=== PATIENT | male | born 1955 | race African-American/Black ===

== ENCOUNTER 2016-03-10 08:14 | Inpatient (IN) | payer MEDICAID ==
[~2016-03-10] VITALS: Ht 162.6 cm; Wt 99.8 kg
[~2016-03-10 08:14] MED LIST: ACETAMINOPHEN-1 EAC1 ORAL; ALBUTEROL SULF8.5 GM INH; ATORVASTATIN CA20 MG ORAL; CLONIDINE0.1 MG GT; HYDRALAZIN20 MG/1 ML IJ; IBUPROFEN600 MG ORAL; LABETALOL H5 MG/1 M1 IV; LASIX20 M1 ORAL; NORCO 5-325 TA1 EACH ORAL; PREDNISONE20 MG ORAL; QVAR7.3 G2 IH; VENTOLIN HFA18 GM INH
[2016-03-10 08:55] VITALS: BP 161/106
[2016-03-10 09:02] LABS: BASOPHILS % (AUTO) 1.2 % (0.0-2.0); LYMPHOCYTES % (AUTO) 37.5 % (20.0-45.0); MEAN CORPUSCULAR HEMOGLOBIN 26.5 PG (27.0-31.0); MEAN CORPUSCULAR HGB CONC 30.9 G/DL (32.0-36.0); MEAN CORPUSCULAR VOLUME 86 FL (80-99); MEAN PLATELET VOLUME 7.6 FL (6.5-10.1); MONOCYTES % (AUTO) 8.8 % (1.0-10.0); NEUTROPHILS % (AUTO) 50.5 % (45.0-75.0); PLATELET COUNT 320 K/UL (150-450); RED BLOOD COUNT 4.88 M/UL (4.70-6.10); RED CELL DISTRIBUTION WIDTH 17.2 % (11.6-14.8); WHITE BLOOD COUNT 9.2 K/UL (4.8-10.8)
[2016-03-10 09:10] VITALS: BP 126/100
[2016-03-10 09:15] LABS: INR 0.9 (0.9-1.1); PROTHROMBIN TIME 9.4 SEC (9.30-11.50)
[2016-03-10 09:19] LABS: ALANINE AMINOTRANSFERASE 14 U/L (3-41); ALBUMIN/GLOBULIN RATIO 1.3 (1.0-2.7); ANION GAP 17 (5-15); ASPARTATE AMINO TRANSFERASE 17 U/L (5-40); CALCIUM 9.3 mg/dL (8.6-10.2); CARBON DIOXIDE 24 mEQ/L (20-30); CHLORIDE 99 mEQ/L (98-107); CREATININE 1.2 mg/dL (0.7-1.2); GLOMERULAR FILTRATION RATE > 60 mL/min (>60); HEMOLYSIS 25; POTASSIUM 4.3 mEQ/L (3.4-4.9); SODIUM 140 mEQ/L (135-145)
[2016-03-10 09:25] LABS: TROPONIN I < 0.30 ng/mL (<=0.30)
[2016-03-10 09:29] LABS: CKMB 5.1 ng/mL (< 6.7)
--- NOTE | 2016-03-10 09:41 | Emergency Room Report ---
History of Present Illness General Chief Complaint: Eye Problems Source: Patient, Medical Record Present Illness HPI Patient presents with several different complaints Initially complained of a syncopal episode while at home Reports syncope after a coughing and sneezing episode Presents today now with diplopia Appears to be localized to the right eye Denies any headache or visual changes Denies any chest pain He does have some shortness of breath intermittently As possibly sleep apnea Denies any blurring of his vision Denies any neck pain or photophobia Allergies: Coded Allergies: HINA INHIBITORS (Verified Allergy, Severe, 04/03/15) TIMOLOL (Unverified Allergy, Unknown, 06/01/15) Patient History Past Medical History: see triage record Pertinent Family History: none Reviewed Nursing Documentation: PMH: Agreed, PSxH: Agreed Nursing Documentation-PMH Past Medical History: No History, Except For Hx Cardiac Problems: Yes - CVA 2001. Hx Hypertension: Yes Hx Asthma: Yes Review of Systems All Other Systems: negative except mentioned in HPI Physical Exam Vital Signs Date Time Temp Pulse Resp B/P Pulse Ox O2 Delivery O2 Flow Rate FiO2 03/10/16 08:06 99.1 76 16 161/106 99 Room Air Sp02 EP Interpretation: reviewed, normal General Appearance: well appearing, no apparent distress Head: normocephalic, atraumatic Eyes: right eye other - Covering the left eye, patient has appropriate vision in the right side, covering the right side patient appears to have appropriate vision on the left side. Getting evidence of binocular diplopia, bilateral eye PERRL ENT: hearing grossly normal, normal pharynx, TMs + canals normal, uvula midline Neck: full range of motion, supple, no meningismus, no bony tend Respiratory: no respiratory distress, no retraction, no accessory muscle use, crackles - In both lower lobes Cardiovascular #1: normal peripheral pulses, regular rate, rhythm, no edema, no gallop, no JVD, no murmur Gastrointestinal: normal bowel sounds, non tender, soft, no mass, no organomegaly, non-distended, no guarding, no hernia, no pulsatile mass, no rebound Genitourinary: no CVA tenderness Musculoskeletal: normal inspection Neurologic: oriented x3, responsive, business management consultant III-XII nml as tested, motor strength/ tone normal, sensory intact Psychiatric: mood/affect normal Skin: normal color, no rash, warm/dry, palpation normal Lymphatic: normal inspection, no adenopathy Medical Decision Making Diagnostic Impression: Primary Impression: Syncope Additional Impression: Diplopia ER Course Patient is a fairly complex patient with multiple differential to consideration including but not limited to cardiac cardiopulmonary , intracranial and vascular emergencies Patient's CT head did not show any obvious acute disease Blood work is at baseline levels Patient's presentation complaints requires further neurological and further imaging studies inpatient Patient was further stabilized for inpatient care Labs Test 03/10/16 08:50 03/11/16 07:15 White Blood Count 9.2 K/UL (4.8-10.8) 7.3 K/UL (4.8-10.8) Red Blood Count 4.88 M/UL (4.70-6.10) 4.65 M/UL (4.70-6.10) Hemoglobin 13.0 G/DL (14.2-18.0) 12.4 G/DL (14.2-18.0) Hematocrit 41.9 % (42.0-52.0) 40.2 % (42.0-52.0) Mean Corpuscular Volume 86 FL (80-99) 86 FL (80-99) Mean Corpuscular Hemoglobin 26.5 PG (27.0-31.0) 26.7 PG (27.0-31.0) Mean Corpuscular Hemoglobin Concent 30.9 G/DL (32.0-36.0) 30.9 G/DL (32.0-36.0) Red Cell Distribution Width 17.2 % (11.6-14.8) 16.9 % (11.6-14.8) Platelet Count 320 K/UL (150-450) 309 K/UL (150-450) Mean Platelet Volume 7.6 FL (6.5-10.1) 8.1 FL (6.5-10.1) Neutrophils (%) (Auto) 50.5 % (45.0-75.0) 50.7 % (45.0-75.0) Lymphocytes (%) (Auto) 37.5 % (20.0-45.0) 37.4 % (20.0-45.0) Monocytes (%) (Auto) 8.8 % (1.0-10.0) 9.2 % (1.0-10.0) Eosinophils (%) (Auto) 2.0 % (0.0-3.0) 1.6 % (0.0-3.0) Basophils (%) (Auto) 1.2 % (0.0-2.0) 1.2 % (0.0-2.0) Prothrombin Time 9.4 SEC (9.30-11.50) 9.4 SEC (9.30-11.50) Prothromb Time International Ratio 0.9 (0.9-1.1) 0.9 (0.9-1.1) Activated Partial Thromboplast Time 25 SEC (23-33) 27 SEC (23-33) Sodium Level 140 mEQ/L (135-145) 139 mEQ/L (135-145) Potassium Level 4.3 mEQ/L (3.4-4.9) 4.6 mEQ/L (3.4-4.9) Chloride Level 99 mEQ/L (98-107) 99 mEQ/L (98-107) Carbon Dioxide Level 24 mEQ/L (20-30) 26 mEQ/L (20-30) Anion Gap 17 (5-15) 14 (5-15) Blood Urea Nitrogen 18 mg/dL (7-23) 14 mg/dL (7-23) Creatinine 1.2 mg/dL (0.7-1.2) 0.9 mg/dL (0.7-1.2) Estimat Glomerular Filtration Rate > 60 mL/min (>60) > 60 mL/min (>60) Glucose Level 73 mg/dL (74-106) 124 mg/dL (74-106) Calcium Level 9.3 mg/dL (8.6-10.2) 9.1 mg/dL (8.6-10.2) Total Bilirubin 0.3 mg/dL (0.0-1.2) 0.4 mg/dL (0.0-1.2) Aspartate Amino Transf (AST/SGOT) 17 U/L (5-40) 15 U/L (5-40) Alanine Aminotransferase (ALT/SGPT) 14 U/L (3-41) 13 U/L (3-41) Alkaline Phosphatase 94 U/L (40-129) 97 U/L (40-129) Total Creatine Kinase 305 U/L (38-174) Creatine Kinase MB 5.1 ng/mL (< 6.7) Creatine Kinase MB Relative Index 1.6 Troponin I < 0.30 ng/mL (<=0.30) Pro-B-Type Natriuretic Peptide 120 pg/mL (0-125) Total Protein 7.0 g/dL (6.6-8.7) 7.1 g/dL (6.6-8.7) Albumin 4.0 g/dL (3.5-5.2) 3.9 g/dL (3.5-5.2) Globulin 3.0 g/dL 3.2 g/dL Albumin/Globulin Ratio 1.3 (1.0-2.7) 1.2 (1.0-2.7) Triglycerides Level 76 mg/dL (< 150) Cholesterol Level 202 mg/dL (< 200) LDL Cholesterol 109 mg/dL (60-99) HDL Cholesterol 78 mg/dL (> 60) Cholesterol/HDL Ratio 2.6 (3.3-4.4) Thyroid Stimulating Hormone (TSH) 2.350 uIU/mL (0.300-4.500) EKG Diagnostic Results Rate: normal Rhythm: NSR ST Segments: other - Nonspecific ST and T-wave changes Rhythm Strip Diag. Results EP Interpretation: yes Rate: 74 Rhythm: NSR, no PVC's, no ectopy Chest X-Ray Diagnostic Results EP Interpretation: Yes Findings: no consolidation, no effusion, no pneumothorax Number of Views: 1 CT/MRI/US Diagnostic Results CT/MRI/US Diagnostic Results : Impression CT head no acute disease Last Vital Signs Date Time Temp Pulse Resp B/P Pulse Ox O2 Delivery O2 Flow Rate FiO2 03/10/16 09:10 99.1 79 21 126/100 100 Room Air Status: improved Disposition: ADMITTED INPATIENT Condition: Serious Referrals: [facility],REFERRING (PCP) ESPERANZA MANN D.O. Mar 10, 2016 09:41
[2016-03-10 10:17] VITALS: BP 117/69
--- NOTE | 2016-03-10 10:23 | Diagnostic Imaging Report ---
Indication: Headache Technique: Contiguous 5 mm thick transaxial imaging of the head obtained in a Siemens Sensation [address] scanner. Soft tissue and bone windows generated. Total Dose length Product (DLP): [address] Dose Index Volume (CTDIvol): 70.38 mGy Comparison: none Findings: Mild, nonspecific, white matter hypoattenuation is noted throughout the brain consistent with chronic small vessel disease. Patchy low-attenuation foci noted throughout the thalami and basal ganglia regions. There is no midline shift, edema, acute hemorrhage, mass effect, or abnormal extra-axial fluid collections. Bones and extra osseous soft tissues are unremarkable. Impression: No acute intracranial bleed, mass effect or edema. Nonspecific white matter hypoattenuation probably due to chronic small vessel disease. The CT scanner at [facility] is accredited by the [employer] and the scans are performed using protocols designed to limit radiation exposure to as low as reasonably achievable to attain images of sufficient resolution adequate for diagnostic evaluation.
--- NOTE | 2016-03-10 11:08 | Diagnostic Imaging Report ---
Indication: Chest Pain Comparison: 06/01/15 A single view chest radiograph was obtained. Findings: Cardiomediastinal appearance is within normal limits for age. Pulmonary vascularity is appropriate. The diaphragmatic contour is smooth and costophrenic angles are sharp. No pleural effusions are identified. The bones are unremarkable. Impression: No acute findings
[2016-03-10] MEDS ORDERED: Morphine Sulfate 2mg/ml Inj IVP PRN (13:15)
[2016-03-10] MEDS ORDERED: Promethazine/Codeine 5ml UD ORAL PRN (13:15)
[2016-03-10] MEDS ORDERED: LORazepam Inj 2mg/ml 1ml IV PRN (13:15)
[2016-03-10] MEDS ORDERED: Mylanta II UD 30ml ORAL PRN (13:15)
[2016-03-10] MEDS ORDERED: Miralax 17gm pkt ORAL PRN (13:15)
[2016-03-10] MEDS ORDERED: Norco 5mg/325mg tab ORAL PRN (13:15)
[2016-03-10] MEDS ORDERED: Nitroglycerin Subl 0.4mg tab (Bottle Of 25) SL PRN (13:15)
--- NOTE | 2016-03-10 13:17 | History and Physical ---
History of Present Illness General Date patient seen: Mar 10, 2016 Reason for Hospitalization: Eye Problems Present Illness HPI 60 year old male with HTN, COPD, morbid obesity, woke up this morning with double vision. Brought it to rule out CVA. Allergies: Coded Allergies: HINA INHIBITORS (Verified Allergy, Severe, 04/03/15) TIMOLOL (Unverified Allergy, Unknown, 06/01/15) Medication History Scheduled Albuterol Sulfate (Ventolin Hfa), 2 PUFFS INH EVERY 6 HOURS, (Reported) Atorvastatin Calcium* (Atorvastatin Calcium*), Unknown Dose ORAL BEDTIME, ( Reported) Clonidine HCl (Clonidine HCl), 0.3 MG GT BID, (Reported) Furosemide* (Lasix*), 20 MG ORAL DAILY Hydralazine Hcl (Hydralazine Hcl), 100 MG IJ TID, (Reported) Ibuprofen* (Motrin*), 600 MG ORAL THREE TIMES A DAY Labetalol Hcl* (Labetalol Hcl*), 300 MG IV BID, (Reported) Prednisone* (Prednisone*), 40 MG ORAL DAILY Scheduled PRN Acetaminophen With Codeine (T#3) (Tylenol #3 Tab*), 1 TAB ORAL Q8H PRN for For Pain Albuterol Sulfate* (Albuterol Sulfate Mdi*), 2 PUFF INH Q4H PRN for Shortness of Breath Hydrocodone Bit/Acetaminophen 5-325* ([place] 5-325*), 1 TAB ORAL Q12HR PRN for For Pain Miscellaneous Medications Beclomethasone Dipropionate (Qvar), 7.3 GM IH, (Reported) Patient History Healthcare decision maker Resuscitation status Full Code Advanced Directive on File Past Medical/Surgical History Past Medical/Surgical History: (1) Sleep apnea (2) COPD exacerbation (3) Hypertension (4) Back pain Review of Systems All Other Systems: negative except mentioned in HPI Physical Exam General Appearance: WD/WN Lines, tubes and drains: peripheral, central line HEENT: normocephalic, atraumatic Neck: non-tender, normal alignment Respiratory/Chest: chest wall non-tender, lungs clear Cardiovascular/Chest: normal peripheral pulses Abdomen: normal bowel sounds Last 24 Hour Vital Signs Date Time Temp Pulse Resp B/P Pulse Ox O2 Delivery O2 Flow Rate FiO2 03/10/16 10:17 97.1 68 19 117/69 100 Room Air 03/10/16 09:10 99.1 79 21 126/100 100 Room Air 03/10/16 08:55 99.1 89 16 161/106 99 Room Air 03/10/16 08:06 99.1 76 16 161/106 99 Room Air Laboratory Tests Test 03/10/16 08:50 White Blood Count 9.2 K/UL (4.8-10.8) Red Blood Count 4.88 M/UL (4.70-6.10) Hemoglobin 13.0 G/DL (14.2-18.0) L Hematocrit 41.9 % (42.0-52.0) L Mean Corpuscular Volume 86 FL (80-99) Mean Corpuscular Hemoglobin 26.5 PG (27.0-31.0) L Mean Corpuscular Hemoglobin Concent 30.9 G/DL (32.0-36.0) L Red Cell Distribution Width 17.2 % (11.6-14.8) H Platelet Count 320 K/UL (150-450) Mean Platelet Volume 7.6 FL (6.5-10.1) Neutrophils (%) (Auto) 50.5 % (45.0-75.0) Lymphocytes (%) (Auto) 37.5 % (20.0-45.0) Monocytes (%) (Auto) 8.8 % (1.0-10.0) Eosinophils (%) (Auto) 2.0 % (0.0-3.0) Basophils (%) (Auto) 1.2 % (0.0-2.0) Prothrombin Time 9.4 SEC (9.30-11.50) Prothromb Time International Ratio 0.9 (0.9-1.1) Activated Partial Thromboplast Time 25 SEC (23-33) Sodium Level 140 mEQ/L (135-145) Potassium Level 4.3 mEQ/L (3.4-4.9) Chloride Level 99 mEQ/L (98-107) Carbon Dioxide Level 24 mEQ/L (20-30) Anion Gap 17 (5-15) H Blood Urea Nitrogen 18 mg/dL (7-23) Creatinine 1.2 mg/dL (0.7-1.2) Estimat Glomerular Filtration Rate > 60 mL/min (>60) Glucose Level 73 mg/dL (74-106) L Calcium Level 9.3 mg/dL (8.6-10.2) Total Bilirubin 0.3 mg/dL (0.0-1.2) Aspartate Amino Transf (AST/SGOT) 17 U/L (5-40) Alanine Aminotransferase (ALT/SGPT) 14 U/L (3-41) Alkaline Phosphatase 94 U/L (40-129) Total Creatine Kinase 305 U/L (38-174) H Creatine Kinase MB 5.1 ng/mL (< 6.7) Creatine Kinase MB Relative Index 1.6 Troponin I < 0.30 ng/mL (<=0.30) Pro-B-Type Natriuretic Peptide 120 pg/mL (0-125) Total Protein 7.0 g/dL (6.6-8.7) Albumin 4.0 g/dL (3.5-5.2) Globulin 3.0 g/dL Albumin/Globulin Ratio 1.3 (1.0-2.7) Height (Feet): 5 Height (Inches): 4.00 Weight (Pounds): 220 Medications Current Medications Medications (Trade) Dose Ordered Sig/Red Route PRN Reason Start Time Stop Time Status Last Admin Dose Admin Acetaminophen (Tylenol) 650 mg Q4H PRN ORAL fever 03/10/16 13:15 04/09/16 13:14 UNV Acetaminophen/ Hydrocodone Bitart ([place] 5/325) 1 tab Q12HR PRN ORAL For Pain 03/10/16 13:15 03/17/16 13:14 UNV Al Hydroxide/Mg Hydroxide (Mylanta II) 30 ml Q6H PRN ORAL dyspepsia 03/10/16 13:15 04/09/16 13:14 UNV Albuterol/ Ipratropium (DuoNeb 0.5-3(2.5)mg/3ml) 3 ml EVERY 4 HOURS PRN HHN Shortness of Breath 03/10/16 13:15 03/15/16 13:14 UNV Clonidine HCl (Catapres) 0.1 mg Q4H PRN ORAL For High Blood Pressure 03/10/16 13:15 04/09/16 13:14 UNV Clonidine HCl (Catapres) 0.3 mg BID GT 03/10/16 18:00 04/09/16 17:59 UNV Dextrose (Dextrose 50%) STAT PRN IV Hypoglycemia 03/10/16 13:15 04/09/16 13:14 UNV Dextrose/Sodium Chloride (D5 0.45% NS) 1,000 ml @ 50 mls/hr Q20H IV 03/10/16 17:50 04/09/16 17:49 UNV Furosemide (Lasix) 20 mg DAILY ORAL 03/11/16 09:00 04/10/16 08:59 UNV Heparin Sodium (Porcine) (Heparin 5000 units/ml) 5,000 units EVERY 12 HOURS SUBQ 03/10/16 21:00 04/09/16 20:59 UNV Labetalol HCl 300 mg 300 mg BID IV 03/10/16 18:00 04/09/16 17:59 UNV Lorazepam (Ativan 2mg/ml 1ml) 0.5 mg Q4H PRN IV For Anxiety 03/10/16 13:15 03/17/16 13:14 UNV Morphine Sulfate (Morphine Sulfate) 1 mg EVERY 4 HOURS PRN IVP For Pain 7-10 03/10/16 13:15 03/17/16 13:14 UNV Nitroglycerin (Ntg) 0.4 mg Q5M X 3 DOSES PRN SL Prn Chest Pain 03/10/16 13:15 04/09/16 13:14 UNV Ondansetron HCl (Zofran) 4 mg Q6H PRN IVP Nausea & Vomiting 03/10/16 13:15 04/09/16 13:14 UNV Polyethylene Glycol (Miralax) 17 gm HSPRN PRN ORAL Constipation 03/10/16 13:15 04/09/16 13:14 UNV Promethazine HCl/ Codeine (Phenergan with Codeine) 5 ml Q4H PRN ORAL For Cough 03/10/16 13:15 04/09/16 13:14 UNV Temazepam (Restoril) 15 mg HSPRN PRN ORAL Insomnia 03/10/16 13:15 03/17/16 13:14 UNV Assessment/Plan Problem List: (1) Diplopia ICD Codes: H53.2 - Diplopia SNOMED: 02659390 (2) Cerebrovascular accident (CVA) ICD Codes: I63.9 - Cerebral infarction, unspecified SNOMED: 608563261 Qualifiers: Qualified Codes: I63.9 - Cerebral infarction, unspecified (3) Hypertension ICD Codes: I10 - Essential (primary) hypertension SNOMED: 71866452 (4) Sleep apnea ICD Codes: G47.30 - Sleep apnea, unspecified SNOMED: 66305663 Qualifiers: Qualified Codes: G47.33 - Obstructive sleep apnea (adult) (pediatric) (5) COPD exacerbation ICD Codes: J44.1 - Chronic obstructive pulmonary disease with (acute) exacerbation SNOMED: 288655549 Assessment/Plan neuro evaluation risk stratification monitor bp echo, carotid US FELIBERTO BARBER Mar 10, 2016 13:17
[2016-03-10 16:00] VITALS: BP 154/93
[2016-03-10] MEDS: D5 1/2NS 1,000 ML IV SCH (17:55)
[2016-03-10] MEDS ORDERED: Labetalol 5mg/ml 20ml vial IV SCH (18:00)
--- NOTE | 2016-03-10 18:35 | Neurology Progress Note ---
Objective Physical Exam Last Vital Signs Date Time Temp Pulse Resp B/P Pulse Ox O2 Delivery O2 Flow Rate FiO2 03/10/16 17:56 157/105 03/10/16 16:00 75 18 97 Room Air 03/10/16 11:35 97.1 Laboratory Tests Test 03/10/16 08:50 White Blood Count 9.2 K/UL (4.8-10.8) Red Blood Count 4.88 M/UL (4.70-6.10) Hemoglobin 13.0 G/DL (14.2-18.0) L Hematocrit 41.9 % (42.0-52.0) L Mean Corpuscular Volume 86 FL (80-99) Mean Corpuscular Hemoglobin 26.5 PG (27.0-31.0) L Mean Corpuscular Hemoglobin Concent 30.9 G/DL (32.0-36.0) L Red Cell Distribution Width 17.2 % (11.6-14.8) H Platelet Count 320 K/UL (150-450) Mean Platelet Volume 7.6 FL (6.5-10.1) Neutrophils (%) (Auto) 50.5 % (45.0-75.0) Lymphocytes (%) (Auto) 37.5 % (20.0-45.0) Monocytes (%) (Auto) 8.8 % (1.0-10.0) Eosinophils (%) (Auto) 2.0 % (0.0-3.0) Basophils (%) (Auto) 1.2 % (0.0-2.0) Prothrombin Time 9.4 SEC (9.30-11.50) Prothromb Time International Ratio 0.9 (0.9-1.1) Activated Partial Thromboplast Time 25 SEC (23-33) Sodium Level 140 mEQ/L (135-145) Potassium Level 4.3 mEQ/L (3.4-4.9) Chloride Level 99 mEQ/L (98-107) Carbon Dioxide Level 24 mEQ/L (20-30) Anion Gap 17 (5-15) H Blood Urea Nitrogen 18 mg/dL (7-23) Creatinine 1.2 mg/dL (0.7-1.2) Estimat Glomerular Filtration Rate > 60 mL/min (>60) Glucose Level 73 mg/dL (74-106) L Calcium Level 9.3 mg/dL (8.6-10.2) Total Bilirubin 0.3 mg/dL (0.0-1.2) Aspartate Amino Transf (AST/SGOT) 17 U/L (5-40) Alanine Aminotransferase (ALT/SGPT) 14 U/L (3-41) Alkaline Phosphatase 94 U/L (40-129) Total Creatine Kinase 305 U/L (38-174) H Creatine Kinase MB 5.1 ng/mL (< 6.7) Creatine Kinase MB Relative Index 1.6 Troponin I < 0.30 ng/mL (<=0.30) Pro-B-Type Natriuretic Peptide 120 pg/mL (0-125) Total Protein 7.0 g/dL (6.6-8.7) Albumin 4.0 g/dL (3.5-5.2) Globulin 3.0 g/dL Albumin/Globulin Ratio 1.3 (1.0-2.7) Impression/Recommendations Problems: (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 (2) Abnormal gait (3) Diplopia (4) Sleep apnea (5) COPD exacerbation (6) Hypertension Status: unchanged Recommendations #[id number] MRI BRAIN OPHALMOLOGY LISANDRO [id number] ELVIN KING Mar 10, 2016 18:35
[2016-03-10 20:00] VITALS: BP 131/81
[2016-03-10] MEDS: Aspirin EC 81mg tab ORAL SCH (20:05)
[2016-03-10] MEDS: Heparin 5000 units/ml inj SUBQ SCH (20:06)
[2016-03-10] MEDS: DuoNeb 0.5-3(2.5)mg/3ml neb HHN PRN (20:16)
--- NOTE | 2016-03-10 22:57 | Consultation ---
DATE OF CONSULTATION: 03/10/2016 NEUROLOGICAL CONSULTATION REQUESTING PHYSICIAN: Janice Reynolds M.D. History of Present Illness: The patient is a 60-year-old gentleman who is seen in neurological consultation to evaluate the new onset of diplopia. The patient informed me that he woke up this morning, feeling fairly well around 7 a.m., then later about 7:30 to 8 o'clock, he had some breakfast and went back to bed to get some nap. Caregiver came and told him what is wrong with his eye. He did not notice initially, but then as he went to the bathroom and looked at the mirror, he was able to see that his right eye deviates to the right side. He had things were doubled with horizontal separation. He denies any other associated symptoms. No headache. No dizziness. No unilateral weakness, numbness, or tingling. Paramedics were called to the scene, blood pressure was elevated and in the emergency room was 161/106 and temperature 99.1 degrees. The patient denies recent upper respiratory infection, but admit having chronic productive cough. Following admission CAT scan of the brain revealed moderate diffuse atrophy, small vessel disease with no evidence of acute abnormalities. His chest x-ray, there was no acute findings. Lab work with CBC with mild anemia. Normal coagulation panel. Chemistry panel with elevated CK of 305, blood sugar was 73, anion gap of 17, otherwise normal study including troponins. Following admission until present, there was no further progression of symptomatology. PAST MEDICAL HISTORY: History of hypertension, hyperlipidemia, obstructive sleep apnea, COPD, cardiomyopathy and borderline diabetes. MEDICATIONS: Treatment prior to admission included atorvastatin, albuterol, Tylenol for pain control, clonidine, furosemide, hydralazine, Rippey p.r.n., ibuprofen, labetalol and prednisone 40 mg daily. SOCIAL HISTORY: Lives alone. He has a caregiver, who visits him daily. He is a smoker one pack per day, but denies alcohol or drug abuse. HISTORY: Noncontributory. REVIEW OF SYMPTOMS: The patient denies headache or dizziness. No swallowing difficulties, but has diplopia on lateral gazes with horizontal separation of images. He noticed small right orbital fissure. No chest pain. No palpitations. Denies shortness of breath. Unstable gait for the last couple of years, reason unknown. He is using cane. PHYSICAL EXAMINATION: GENERAL: This is a well-developed, morbidly obese male who is able to ambulate, holding to the IV pole. VITAL SIGNS: His vital signs now stable. Blood pressure 157/105, blood temperature 97.1 degrees, and pulse oximetry 97%. HEENT: Head, normocephalic. No evidence of trauma. Eyes, ears, and throat are clear. There is slight small of right orbital fissure. NECK: Supple. No meningeal signs. MUSCULOSKELETAL: Unremarkable. There is no deformities. Peripheral pulses 1+ symmetric. MENTAL STATUS: Alert and oriented x3. Speech is fluent. No evidence of aphasia. No apraxia. Cognitive function normal. CRANIAL NERVE II: Pupils both responding to light and accommodation. Extraocular movement abnormal in the right eye with eyes drifting to the right side. Normal vertical gazes. Symptoms somewhat fluctuating, at times right eye movement full range. There is diplopia on lateral gazes. CRANIAL NERVE V: Normal corneal responses. CRANIAL NERVE VII: No gross asymmetry. CRANIAL NERVE VIII: Slight decrease in hearing. CRANIAL NERVES IX THROUGH XII: Tongue is in midline. Symmetric palate elevation. MOTOR EXAMINATION: Normal muscle tone. Strength 5/5 in all extremities. No pronation drift. Deep reflexes 1+ symmetric with downgoing toes on both sides. Sensory exam normal to pinprick and light touch. Gait is slow, wobbly and required assistance. IMPRESSION: 1. Acute onset of partial right third nerve palsy, rule out third nerve mononeuropathy, rule out the lacunar stroke. 2. Abnormal ataxic gait, rule out extensive ischemic cerebrovascular disease with multiple strokes, rule out polyneuropathy. 3. Hypertension. 4. Morbid obesity. 5. Nicotine dependent. 6. Chronic obstructive pulmonary disease. 7. Obstructive sleep apnea. RECOMMENDATIONS: 1. MRI of the brain and orbit without contrast. 2. Hydration. Maintain systolic blood pressure above 110 and below 160. 3. Check carotid duplex and 2D echocardiogram. 4. Add aspirin 81 mg daily. 5. Avoid opiates. 6. Ophthalmology assessment. Thank you for allowing me to see this interesting patient in neurological consultation. Niko Paz M.D. DR: ANANTH JOB#: [id number] CC:
[2016-03-11] VITALS (7 sets, daily range): BP systolic 105–161; BP diastolic 78–104
[2016-03-11 08:37] LABS: ALANINE AMINOTRANSFERASE 13 U/L (3-41); ALBUMIN/GLOBULIN RATIO 1.2 (1.0-2.7); ANION GAP 14 (5-15); ASPARTATE AMINO TRANSFERASE 15 U/L (5-40); CALCIUM 9.1 mg/dL (8.6-10.2); CARBON DIOXIDE 26 mEQ/L (20-30); CHLORIDE 99 mEQ/L (98-107); CHOLESTEROL 202 mg/dL (< 200); CHOLESTEROL/HDL RATIO 2.6 (3.3-4.4); CREATININE 0.9 mg/dL (0.7-1.2); GLOMERULAR FILTRATION RATE > 60 mL/min (>60); HEMOLYSIS 1; LDL CHOLESTEROL (CALC.) 109 mg/dL (60-99); POTASSIUM 4.6 mEQ/L (3.4-4.9); SODIUM 139 mEQ/L (135-145); TOTAL PROTEIN 7.1 g/dL (6.6-8.7)
[2016-03-11] MEDS: Aspirin EC 81mg tab ORAL SCH (08:40)
[2016-03-11 08:41] LABS: BASOPHILS % (AUTO) 1.2 % (0.0-2.0); EOSINOPHILS % (AUTO) 1.6 % (0.0-3.0); LYMPHOCYTES % (AUTO) 37.4 % (20.0-45.0); MEAN CORPUSCULAR HEMOGLOBIN 26.7 PG (27.0-31.0); MEAN CORPUSCULAR HGB CONC 30.9 G/DL (32.0-36.0); MEAN CORPUSCULAR VOLUME 86 FL (80-99); MEAN PLATELET VOLUME 8.1 FL (6.5-10.1); MONOCYTES % (AUTO) 9.2 % (1.0-10.0); NEUTROPHILS % (AUTO) 50.7 % (45.0-75.0); PLATELET COUNT 309 K/UL (150-450); RED BLOOD COUNT 4.65 M/UL (4.70-6.10); RED CELL DISTRIBUTION WIDTH 16.9 % (11.6-14.8); WHITE BLOOD COUNT 7.3 K/UL (4.8-10.8)
[2016-03-11] MEDS: Heparin 5000 units/ml inj SUBQ SCH ×2 (08:41→20:39)
[2016-03-11 08:58] LABS: INR 0.9 (0.9-1.1); PROTHROMBIN TIME 9.4 SEC (9.30-11.50)
[2016-03-11] MEDS: DuoNeb 0.5-3(2.5)mg/3ml neb HHN PRN ×2 (09:34→17:01)
--- NOTE | 2016-03-11 09:50 | Pulmonology Progress Note ---
Assessment/Plan Problems: (1) Diplopia (2) Cerebrovascular accident (CVA) (3) Hypertension (4) Sleep apnea (5) COPD exacerbation Assessment/Plan awaiting MRI brain neuro input appreciated swallow study noted med/surg dc home if ok with Neuro Subjective Interval Events: diplopia resolved Allergies: Coded Allergies: HINA INHIBITORS (Verified Allergy, Severe, 04/03/15) TIMOLOL (Unverified Allergy, Unknown, 06/01/15) Objective Last 24 Hour Vital Signs Date Time Temp Pulse Resp B/P Pulse Ox O2 Delivery O2 Flow Rate FiO2 03/11/16 09:37 78 20 98 Room Air 03/11/16 08:41 151/87 03/11/16 08:34 151/87 03/11/16 07:51 97.7 77 20 105/84 99 Room Air 03/11/16 06:50 67 17 Room Air 21 03/11/16 04:00 97.2 69 20 143/78 100 Room Air 03/11/16 03:47 63 03/11/16 00:00 97.4 72 16 140/84 99 Room Air 03/10/16 23:53 64 03/10/16 20:24 66 18 99 Room Air 03/10/16 20:16 66 18 97 Room Air 03/10/16 20:15 66 18 Room Air 03/10/16 20:00 77 03/10/16 20:00 96.8 74 18 131/81 98 Room Air 03/10/16 17:56 157/105 03/10/16 16:00 75 18 154/93 97 Room Air 03/10/16 16:00 73 03/10/16 11:39 84 03/10/16 11:35 97.1 68 19 117/69 100 Room Air 03/10/16 10:17 97.1 68 19 117/69 100 Room Air Intake and Output 03/10/16 03/11/16 19:00 07:00 Intake Total 50 ml 600 ml Balance 50 ml 600 ml Intake Oral 0 ml IV Total 50 ml 600 ml # Voids 2 General Appearance: WD/WN HEENT: normocephalic Respiratory/Chest: chest wall non-tender, lungs clear Cardiovascular: normal peripheral pulses, normal rate Abdomen: normal bowel sounds, no organomegaly Laboratory Tests 03/11/16 07:15: White Blood Count 7.3, Red Blood Count 4.65L, Hemoglobin 12.4L, Hematocrit 40.2L , Mean Corpuscular Volume 86, Mean Corpuscular Hemoglobin 26.7L, Mean Corpuscular Hemoglobin Concent 30.9L, Red Cell Distribution Width 16.9H, Platelet Count 309, Mean Platelet Volume 8.1, Neutrophils (%) (Auto) 50.7, Lymphocytes (%) (Auto) 37.4, Monocytes (%) (Auto) 9.2, Eosinophils (%) (Auto) 1.6, Basophils (%) (Auto) 1.2, Prothrombin Time 9.4, Prothromb Time International Ratio 0.9, Activated Partial Thromboplast Time 27, Sodium Level 139, Potassium Level 4.6, Chloride Level 99, Carbon Dioxide Level 26, Anion Gap 14, Blood Urea Nitrogen 14, Creatinine 0.9, Estimat Glomerular Filtration Rate > 60, Glucose Level 124H, Calcium Level 9.1, Total Bilirubin 0.4, Aspartate Amino Transf (AST/SGOT) 15, Alanine Aminotransferase (ALT/SGPT) 13, Alkaline Phosphatase 97, Total Protein 7.1, Albumin 3.9, Globulin 3.2, Albumin/Globulin Ratio 1.2, Triglycerides Level 76, Cholesterol Level 202H, LDL Cholesterol 109H , HDL Cholesterol 78H, Cholesterol/HDL Ratio 2.6L, Thyroid Stimulating Hormone ( TSH) 2.350 Current Medications Medications (Trade) Dose Ordered Sig/Red Route PRN Reason Start Time Stop Time Status Last Admin Dose Admin Acetaminophen (Tylenol) 650 mg Q4H PRN ORAL fever 03/10/16 13:15 04/09/16 13:14 Acetaminophen/ Hydrocodone Bitart 1 tab 1 tab Q12HR PRN ORAL For Pain 03/10/16 13:15 03/17/16 13:14 Al Hydroxide/Mg Hydroxide (Mylanta II) 30 ml Q6H PRN ORAL dyspepsia 03/10/16 13:15 04/09/16 13:14 Albuterol/ Ipratropium (DuoNeb 0.5-3(2.5)mg/3ml) 3 ml Q4H PRN HHN Shortness of Breath 03/10/16 13:15 03/15/16 13:14 03/11/16 09:34 Aspirin (Ecotrin) 81 mg DAILY ORAL 03/10/16 19:00 04/09/16 18:59 03/11/16 08:40 Clonidine HCl (Catapres) 0.1 mg Q4H PRN ORAL For High Blood Pressure 03/10/16 13:15 04/09/16 13:14 Clonidine HCl (Catapres) 0.3 mg BID GT 03/10/16 18:00 04/09/16 17:59 03/11/16 08:41 Dextrose (Dextrose 50%) STAT PRN IV Hypoglycemia 03/10/16 13:15 04/09/16 13:14 Dextrose/Sodium Chloride (D5 0.45% NS) 1,000 ml @ 50 mls/hr Q20H IV 03/10/16 17:50 04/09/16 17:49 03/10/16 17:55 Furosemide (Lasix) 20 mg DAILY ORAL 03/11/16 09:00 04/10/16 08:59 03/11/16 08:40 Heparin Sodium (Porcine) (Heparin 5000 units/ml) 5,000 units EVERY 12 HOURS SUBQ 03/10/16 21:00 04/09/16 20:59 03/11/16 08:41 Lorazepam (Ativan 2mg/ml 1ml) 0.5 mg Q4H PRN IV For Anxiety 03/10/16 13:15 03/17/16 13:14 Morphine Sulfate (Morphine Sulfate) 1 mg Q4H PRN IVP For Pain 7-10 03/10/16 13:15 03/17/16 13:14 Nitroglycerin (Ntg) 0.4 mg Q5M X 3 DOSES PRN SL Prn Chest Pain 03/10/16 13:15 04/09/16 13:14 Ondansetron HCl (Zofran) 4 mg Q6H PRN IVP Nausea & Vomiting 03/10/16 13:15 04/09/16 13:14 Polyethylene Glycol (Miralax) 17 gm HSPRN PRN ORAL Constipation 03/10/16 13:15 04/09/16 13:14 Promethazine HCl/ Codeine (Phenergan with Codeine) 5 ml Q4H PRN ORAL For Cough 03/10/16 13:15 04/09/16 13:14 Temazepam (Restoril) 15 mg HSPRN PRN ORAL Insomnia 03/10/16 13:15 03/17/16 13:14 FELIBERTO BARBER Mar 11, 2016 09:50
--- NOTE | 2016-03-11 13:19 | Neurology Progress Note ---
Interim History Interim History ROS Limited/Unobtainable: No Complaints: OD deviates to R intermittently Events: stable, no associate sx Objective Physical Exam Last Vital Signs Date Time Temp Pulse Resp B/P Pulse Ox O2 Delivery O2 Flow Rate FiO2 03/11/16 11:34 98.4 75 20 137/104 98 Room Air 03/11/16 06:50 21 Laboratory Tests Test 03/11/16 07:15 White Blood Count 7.3 K/UL (4.8-10.8) Red Blood Count 4.65 M/UL (4.70-6.10) L Hemoglobin 12.4 G/DL (14.2-18.0) L Hematocrit 40.2 % (42.0-52.0) L Mean Corpuscular Volume 86 FL (80-99) Mean Corpuscular Hemoglobin 26.7 PG (27.0-31.0) L Mean Corpuscular Hemoglobin Concent 30.9 G/DL (32.0-36.0) L Red Cell Distribution Width 16.9 % (11.6-14.8) H Platelet Count 309 K/UL (150-450) Mean Platelet Volume 8.1 FL (6.5-10.1) Neutrophils (%) (Auto) 50.7 % (45.0-75.0) Lymphocytes (%) (Auto) 37.4 % (20.0-45.0) Monocytes (%) (Auto) 9.2 % (1.0-10.0) Eosinophils (%) (Auto) 1.6 % (0.0-3.0) Basophils (%) (Auto) 1.2 % (0.0-2.0) Prothrombin Time 9.4 SEC (9.30-11.50) Prothromb Time International Ratio 0.9 (0.9-1.1) Activated Partial Thromboplast Time 27 SEC (23-33) Sodium Level 139 mEQ/L (135-145) Potassium Level 4.6 mEQ/L (3.4-4.9) Chloride Level 99 mEQ/L (98-107) Carbon Dioxide Level 26 mEQ/L (20-30) Anion Gap 14 (5-15) Blood Urea Nitrogen 14 mg/dL (7-23) Creatinine 0.9 mg/dL (0.7-1.2) Estimat Glomerular Filtration Rate > 60 mL/min (>60) Glucose Level 124 mg/dL (74-106) H Calcium Level 9.1 mg/dL (8.6-10.2) Total Bilirubin 0.4 mg/dL (0.0-1.2) Aspartate Amino Transf (AST/SGOT) 15 U/L (5-40) Alanine Aminotransferase (ALT/SGPT) 13 U/L (3-41) Alkaline Phosphatase 97 U/L (40-129) Total Protein 7.1 g/dL (6.6-8.7) Albumin 3.9 g/dL (3.5-5.2) Globulin 3.2 g/dL Albumin/Globulin Ratio 1.2 (1.0-2.7) Triglycerides Level 76 mg/dL (< 150) Cholesterol Level 202 mg/dL (< 200) H LDL Cholesterol 109 mg/dL (60-99) H HDL Cholesterol 78 mg/dL (> 60) H Cholesterol/HDL Ratio 2.6 (3.3-4.4) L Thyroid Stimulating Hormone (TSH) 2.350 uIU/mL (0.300-4.500) General: no acute distress, other - obese Head: normocophalic, atraumatic Neck: no rigidity Neurologic Exam Mental Status: awake, alert, oriented x4, normal cognition, good mathematical skills, normal recent memory, normal remote memory, preserved visuospatial function Speech: normal speech, no dysarthia Language: normal language, no aphasia Cranial Nerve II: fundus normal, visual [place], no papilledema Cranial Nerves III, IV, : PERRLA, EOMI, pupils, other - slightly smaller R orbit fissure Cranial Nerve V: normal facial sensations, temporales function normal, masseters function normal, pterygoids function normal Cranial Nerve VII: no facial asymmetry, normal facial expressions Cranial Nerve VIII: normal hearing, no nystagmus Cranial Nerve IX: normal palate elevation, gag response Cranial Nerve X: no voice hoarseness Cranial Nerve XI: SCM symmetric, trapezii function normal Cranial Nerve XII: tongue midline, no tongue atrophy/fasciculations Motor System: normal muscle tone, strength 5/5, no involuntary movement Sensory: normal pinprick, normal position sense Coordination: normal finger to nose bilaterally Deep Tendon Reflexes: 0 ankle (L), 0 ankle (R), 0 bicep (L), 0 bicep (R), 0 brachioradialis (L), 0 brachioradialis (R), 0 knee (L), 0 knee (R), 0 tricep (L) , 0 tricep (R) Reflexes: mute plantar (L), mute plantar (R) Gait: stable - wabbly, normal regular, heel + toe gait, other Impression/Recommendations Problems: (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 (2) Abnormal gait (3) Diplopia (4) Sleep apnea (5) COPD exacerbation (6) Hypertension Status: unchanged Recommendations #[id number] MRI BRAIN pend OPHALMOLOGY EVAL [id number] add labs ELVIN KING Mar 11, 2016 13:19
[2016-03-11] MEDS: D5 1/2NS 1,000 ML IV SCH ×2 (13:53→20:38)
--- NOTE | 2016-03-11 14:56 | Consultation ---
Consult Note Assessment/Plan Cardiology for Dr. Fish Full consult dictated #[id number] FRANCIS SCHREIBER Mar 11, 2016 14:56
[2016-03-11] MEDS ORDERED: Nitroglycerin Subl 0.4mg tab (Bottle Of 25) SL PRN (18:45)
[2016-03-11] MEDS ORDERED: Mylanta II UD 30ml ORAL PRN (19:15)
[2016-03-11] MEDS ORDERED: Norco 5mg/325mg tab ORAL PRN (21:00)
[2016-03-11] MEDS ORDERED: Promethazine/Codeine 5ml UD ORAL PRN (21:15)
[2016-03-11] MEDS ORDERED: Morphine Sulfate 2mg/ml Inj IVP PRN (21:15)
[2016-03-11] MEDS ORDERED: LORazepam Inj 2mg/ml 1ml IV PRN (21:15)
[2016-03-12] VITALS: BP 143/101
[2016-03-12 04:00] VITALS: BP 154/111
--- NOTE | 2016-03-12 07:18 | Consultation ---
DATE OF CONSULTATION: CARDIOLOGY CONSULTATION: This is being done as coverage for Dr. Fish. This is a Cardiology consult. REQUESTING PHYSICIAN: Janice Reynolds M.D. REASON FOR CONSULT: Hypertension and possible CVA. HISTORY OF PRESENT ILLNESS: The patient is a 60-year-old, man with a history of obesity and hypertension, who developed diplopia of the right eye shortly after awakening yesterday. He reports that his symptoms have now resolved. Diplopia of the right eye and also noted deviation of the right eye to the right side yesterday. Symptoms occurred while at rest shortly after awakening yesterday. He presented to the emergency room where he was noted to be severely hypertensive 161/106. Head CT was performed, which did not reveal any acute changes. There was moderate diffuse atrophy and small vessel disease. He was evaluated by Neurology and felt to have a possible third nerve mononeuropathy or lacunar CVA. He was admitted for further treatment. He states that his diplopia has now resolved. He has no complaint of shortness of breath, palpitations, lightheadedness, or dizziness. MEDICATIONS: The patient is unsure of his medications at home. Currently, he is on Lasix 20 mg daily, subcutaneous heparin 5000 units q.12 h., aspirin 81 mg daily, clonidine 0.3 mg twice a day, Tylenol as needed, DuoNeb as needed, and morphine as needed. ALLERGIES: HINA inhibitors cause swelling and timolol (uncertain reaction). PAST MEDICAL HISTORY: As noted above. The patient has no previous history of CVA, myocardial infarction, or congestive heart failure. He has hypertension, hyperlipidemia, sleep apnea, and chronic obstructive pulmonary disease. SOCIAL HISTORY: The patient smokes one pack per day and drinks 1/2 pint of vodka per day. He does not use any drugs. PHYSICAL EXAMINATION: VITAL SIGNS: Blood pressure is 137/104, pulse 75 regular, respirations 20, and afebrile. GENERAL: Alert, obese male, in no acute distress. HEENT: Normocephalic and atraumatic. Pupils are equal, round, and reactive to light. Sclerae anicteric. Oral mucosa are moist. NECK: Supple. There is no jugular venous distention. No carotid bruits. LUNGS: Occasional rhonchi bilaterally. HEART: Distant heart sounds. Regular S1, S2 with no murmurs, rubs, S3, or S4. ABDOMEN: Obese. Soft and nontender. No palpable mass. EXTREMITIES: There is 2+ pitting edema of the right greater than left foot and ankle. Distal pulses are intact bilaterally. NEUROLOGIC: Alert and oriented x3. No gross focal motor deficits. Extraocular movements are intact. Pupils are equal, round, and reactive to light and no diplopia. Alert and oriented x3. Extraocular movements intact. There is no diplopia. Currently peripheral vision is intact. Motor, no focal motor deficits. SKIN: No rashes or lesions. LABORATORY AND DIAGNOSTIC DATA: Hemoglobin 12.4, white blood count 7300, and platelets 309,000. Sodium 139, potassium 4.6, BUN 14, and creatinine 0.9. Cholesterol 202, LDL 109, HDL 78, and TSH 2.3. Chest x-ray, we will review. Chest x-ray shows normal heart size. Normal pulmonary vasculature. No infiltrates or effusions. EKG is pending. ASSESSMENT AND RECOMMENDATIONS: The patient is a 60-year-old man with history of hypertension, hyperlipidemia, obesity, and chronic obstructive pulmonary disease who presents with transient diplopia of the right eye. He has been evaluated by Neurology and is felt to have a possible third nerve palsy versus mononeuropathy versus lacunar stroke. This is being evaluated further with an MRI of the brain. He is also scheduled for carotid duplex and echo. On presentation, he was severely hypertensive and this has improved with medication. I would agree with the Neurology recommendation to maintain the blood pressure above 110 and the low 160 in the acute as well. So, this has improved with medical treatment. I would agree with the Neurology recommendation to maintain loose blood pressure control keeping systolic blood pressure above 110 . Possibly periinfarct. He will be maintained on telemetry to rule out atrial fibrillation, which may have potentially caused an embolic CVA. I will review his echo and EKG results, as they become available. His blood pressure will be followed and he will receive labetalol if needed again with loose blood pressure control, as he may be cristiano-infarct. Zakia Boyd M.D. DR: LUIS E JOB#: [id number] CC:
[2016-03-12 07:50] VITALS: BP 147/97
[2016-03-12] MEDS: DuoNeb 0.5-3(2.5)mg/3ml neb HHN PRN ×2 (08:45→13:59)
[2016-03-12] MEDS: Heparin 5000 units/ml inj SUBQ SCH ×2 (09:19→21:31)
[2016-03-12] MEDS: Aspirin EC 81mg tab ORAL SCH (09:22)
[2016-03-12 12:00] VITALS: BP_SYST 123; BP_SYST 164; BP_DIAS 117; BP_DIAS 80
--- NOTE | 2016-03-12 13:12 | Pulmonology Progress Note ---
Assessment/Plan Problems: (1) Diplopia (2) Cerebrovascular accident (CVA) (3) Hypertension (4) Sleep apnea (5) COPD exacerbation Assessment/Plan awaiting MRI brain neuro input appreciated swallow study noted med/surg dc home if ok with Neuro Subjective ROS Limited/Unobtainable: Yes HEENT: Repors: visual change Neurologic: Reports: numbness, weakness Allergies: Coded Allergies: HINA INHIBITORS (Verified Allergy, Severe, 04/03/15) TIMOLOL (Unverified Allergy, Unknown, 06/01/15) Objective Last 24 Hour Vital Signs Date Time Temp Pulse Resp B/P Pulse Ox O2 Delivery O2 Flow Rate FiO2 03/12/16 12:00 97.5 72 20 164/117 98 Room Air 03/12/16 09:18 147/97 03/12/16 08:43 80 26 98 Room Air 03/12/16 07:50 97.2 79 20 147/97 95 Room Air 03/12/16 07:00 78 17 Room Air 21 03/12/16 04:20 81 18 100 Room Air 03/12/16 04:17 75 20 98 Room Air 03/12/16 04:00 97.7 79 22 154/111 98 Room Air 03/12/16 00:00 96.3 75 22 143/101 94 Room Air 03/11/16 19:10 81 17 Room Air 21 03/11/16 19:00 98.9 81 20 154/90 Room Air 03/11/16 18:16 161/100 03/11/16 17:00 85 20 100 Room Air 03/11/16 16:00 99.7 82 20 161/100 95 Simple Mask 2.0 Intake and Output 03/11/16 03/12/16 19:00 07:00 Intake Total 1310 ml 1180 ml Balance 1310 ml 1180 ml Intake Oral 660 ml 580 ml IV Total 650 ml 600 ml # Voids 3 4 General Appearance: no acute distress HEENT: normocephalic, atraumatic, PERRL Respiratory/Chest: chest wall non-tender, decreased breath sounds, accessory muscle use Cardiovascular: normal peripheral pulses, normal rate, regular rhythm, no JVD Abdomen: normal bowel sounds, soft, non tender, no organomegaly Genitourinary: normal external genitalia Extremities: no cyanosis Neurologic/Psychiatric: responsive, abnormal CN, motor weakness, sensory deficit, aphasia, depressed affect Current Medications Medications (Trade) Dose Ordered Sig/Red Route PRN Reason Start Time Stop Time Status Last Admin Dose Admin Acetaminophen (Tylenol) 650 mg Q4H PRN ORAL fever 03/11/16 21:15 04/10/16 21:14 Acetaminophen/ Hydrocodone Bitart ([place] 5/325) 1 tab Q12HR PRN ORAL Moderate Pain (Pain Scale 4-6) 03/11/16 21:00 03/18/16 20:59 Al Hydroxide/Mg Hydroxide (Mylanta II) 30 ml Q6H PRN ORAL dyspepsia 03/11/16 19:15 04/10/16 19:14 Albuterol/ Ipratropium (DuoNeb 0.5-3(2.5)mg/3ml) 3 ml Q4H PRN HHN Shortness of Breath 03/11/16 21:15 03/16/16 21:14 03/12/16 08:45 Aspirin (Ecotrin) 81 mg DAILY ORAL 03/12/16 09:00 04/11/16 08:59 03/12/16 09:22 Clonidine HCl (Catapres) 0.1 mg Q4H PRN ORAL For High Blood Pressure 03/11/16 21:15 04/10/16 21:14 Clonidine HCl (Catapres) 0.3 mg BID GT 03/12/16 09:00 04/11/16 08:59 03/12/16 09:18 Dextrose (Dextrose 50%) STAT PRN IV Hypoglycemia 03/12/16 13:15 04/11/16 13:14 Dextrose/Sodium Chloride (D5 0.45% NS) 1,000 ml @ 50 mls/hr Q20H IV 03/11/16 19:30 04/10/16 19:29 03/11/16 20:38 Furosemide (Lasix) 20 mg DAILY ORAL 03/12/16 09:00 04/11/16 08:59 03/12/16 09:18 Heparin Sodium (Porcine) (Heparin 5000 units/ml) 5,000 units EVERY 12 HOURS SUBQ 03/11/16 21:00 04/10/16 20:59 03/12/16 09:19 Lorazepam (Ativan 2mg/ml 1ml) 0.5 mg Q4H PRN IV For Anxiety 03/11/16 21:15 03/18/16 21:14 Morphine Sulfate (Morphine Sulfate) 1 mg Q4H PRN IVP For Pain 7-10 03/11/16 21:15 03/18/16 21:14 Nitroglycerin (Ntg) 0.4 mg Q5M X 3 DOSES PRN SL Prn Chest Pain 03/11/16 18:45 04/10/16 18:44 Ondansetron HCl (Zofran) 4 mg Q6H PRN IVP Nausea & Vomiting 03/11/16 19:15 04/10/16 19:14 Polyethylene Glycol (Miralax) 17 gm HSPRN PRN ORAL Constipation 03/12/16 13:15 04/11/16 13:14 Promethazine HCl/ Codeine (Phenergan with Codeine) 5 ml Q4H PRN ORAL For Cough 03/11/16 21:15 04/10/16 21:14 Temazepam (Restoril) 15 mg HSPRN PRN ORAL Insomnia 03/12/16 13:15 03/19/16 13:14 FELIBERTO BARBER Mar 12, 2016 13:12
[2016-03-12] MEDS ORDERED: Miralax 17gm pkt ORAL PRN (13:15)
[2016-03-12 16:00] VITALS: BP 148/88
[2016-03-12] MEDS: D5 1/2NS 1,000 ML IV SCH (16:51)
--- NOTE | 2016-03-12 19:03 | Pulmonology Progress Note ---
Assessment/Plan Problems: (1) Diplopia (2) Cerebrovascular accident (CVA) (3) Hypertension (4) Sleep apnea (5) COPD exacerbation Assessment/Plan awaiting MRI brain neuro input appreciated swallow study noted med/surg dc home if ok with Neuro Subjective ROS Limited/Unobtainable: No HEENT: Repors: visual change Neurologic: Reports: confusion, headache, numbness, weakness Allergies: Coded Allergies: HINA INHIBITORS (Verified Allergy, Severe, 04/03/15) TIMOLOL (Unverified Allergy, Unknown, 06/01/15) Objective Last 24 Hour Vital Signs Date Time Temp Pulse Resp B/P Pulse Ox O2 Delivery O2 Flow Rate FiO2 03/12/16 16:00 97.9 67 18 148/88 97 Room Air 03/12/16 14:02 84 18 100 Room Air 03/12/16 13:54 82 22 98 Room Air 03/12/16 12:00 97.5 72 20 164/117 98 Room Air 03/12/16 09:18 147/97 03/12/16 08:43 80 26 98 Room Air 03/12/16 07:50 97.2 79 20 147/97 95 Room Air 03/12/16 07:00 78 17 Room Air 21 03/12/16 04:20 81 18 100 Room Air 03/12/16 04:17 75 20 98 Room Air 03/12/16 04:00 97.7 79 22 154/111 98 Room Air 03/12/16 00:00 96.3 75 22 143/101 94 Room Air 03/11/16 19:10 81 17 Room Air 21 Intake and Output 03/11/16 03/12/16 19:00 07:00 Intake Total 1310 ml 1180 ml Balance 1310 ml 1180 ml Intake Oral 660 ml 580 ml IV Total 650 ml 600 ml # Voids 3 4 General Appearance: no acute distress HEENT: normocephalic, atraumatic, PERRL Respiratory/Chest: chest wall non-tender, decreased breath sounds, accessory muscle use Cardiovascular: normal peripheral pulses, normal rate, regular rhythm Abdomen: normal bowel sounds, soft, non tender, no organomegaly Skin: no rash, no lesions Neurologic/Psychiatric: responsive, abnormal CN, motor weakness, sensory deficit, disoriented, aphasia Current Medications Medications (Trade) Dose Ordered Sig/Red Route PRN Reason Start Time Stop Time Status Last Admin Dose Admin Acetaminophen (Tylenol) 650 mg Q4H PRN ORAL fever 03/11/16 21:15 04/10/16 21:14 Acetaminophen/ Hydrocodone Bitart ([place] 5/325) 1 tab Q12HR PRN ORAL Moderate Pain (Pain Scale 4-6) 03/11/16 21:00 03/18/16 20:59 Al Hydroxide/Mg Hydroxide (Mylanta II) 30 ml Q6H PRN ORAL dyspepsia 03/11/16 19:15 04/10/16 19:14 Albuterol/ Ipratropium (DuoNeb 0.5-3(2.5)mg/3ml) 3 ml Q4H PRN HHN Shortness of Breath 03/11/16 21:15 03/16/16 21:14 03/12/16 13:59 Aspirin (Ecotrin) 81 mg DAILY ORAL 03/12/16 09:00 04/11/16 08:59 03/12/16 09:22 Clonidine HCl (Catapres) 0.1 mg Q4H PRN ORAL For High Blood Pressure 03/11/16 21:15 04/10/16 21:14 Clonidine HCl (Catapres) 0.3 mg BID GT 03/12/16 09:00 04/11/16 08:59 03/12/16 09:18 Dextrose (Dextrose 50%) STAT PRN IV Hypoglycemia 03/12/16 13:15 04/11/16 13:14 Dextrose/Sodium Chloride (D5 0.45% NS) 1,000 ml @ 50 mls/hr Q20H IV 03/11/16 19:30 04/10/16 19:29 03/12/16 16:51 Furosemide (Lasix) 20 mg DAILY ORAL 03/12/16 09:00 04/11/16 08:59 03/12/16 09:18 Heparin Sodium (Porcine) (Heparin 5000 units/ml) 5,000 units EVERY 12 HOURS SUBQ 03/11/16 21:00 04/10/16 20:59 03/12/16 09:19 Lorazepam (Ativan 2mg/ml 1ml) 0.5 mg Q4H PRN IV For Anxiety 03/11/16 21:15 03/18/16 21:14 Morphine Sulfate (Morphine Sulfate) 1 mg Q4H PRN IVP For Pain 7-10 03/11/16 21:15 03/18/16 21:14 Nitroglycerin (Ntg) 0.4 mg Q5M X 3 DOSES PRN SL Prn Chest Pain 03/11/16 18:45 04/10/16 18:44 Ondansetron HCl (Zofran) 4 mg Q6H PRN IVP Nausea & Vomiting 03/11/16 19:15 04/10/16 19:14 Polyethylene Glycol (Miralax) 17 gm HSPRN PRN ORAL Constipation 03/12/16 13:15 04/11/16 13:14 Promethazine HCl/ Codeine (Phenergan with Codeine) 5 ml Q4H PRN ORAL For Cough 03/11/16 21:15 04/10/16 21:14 Temazepam (Restoril) 15 mg HSPRN PRN ORAL Insomnia 03/12/16 13:15 03/19/16 13:14 FELIBERTO BARBER Mar 12, 2016 19:03
--- NOTE | 2016-03-12 19:49 | Cardiology Report ---
APPROVED REPORT EKG Measurement Heart [id number] Normal sinus rhythm Nonspecific T wave abnormality Prolonged QT Abnormal ECG
[2016-03-12 20:00] VITALS: BP 149/88
[2016-03-13] VITALS: BP 140/97
[2016-03-13 04:00] VITALS: BP 145/85
[2016-03-13 08:51] VITALS: BP 166/106
--- NOTE | 2016-03-13 09:18 | Cardiology Report ---
APPROVED REPORT EXAM: Two-dimensional and M-mode echocardiogram with Doppler and color Doppler. INDICATION Left Ventricular Function M-Mode DIMENSIONS IVSd2.2 (0.7-1.1cm)Left Atrium (MM)3.7 (1.6-4.0cm) LVDd4.1 (3.5-5.6cm)Aortic Root3.2 (2.0-3.7cm) PWd1.8 (0.7-1.1cm)Aortic Cusp Exc.1.9 (1.5-2.0cm) LVDs3.1 (2.5-4.0cm) PWs2.0 cm Normal left ventricular chamber size, systolic function and wall motion. Left ventricular ejection fraction estimated to be 55 %. Mild left ventricular hypertrophy. All other cardiac chamber sizes are within normal limits. Mild focal aortic valve sclerosis with adequate cusp excursion. Mildly thickened mitral valve leaflets with normal excursion. Mild mitral annulus and aortic root calcification. Pulmonic valve not well visualized. Normal tricuspid valve structure. IVC dilated at 2.1cm with physiologic collapse. A color flow and spectral Doppler study was performed and revealed: No aortic regurgitation. Mild mitral regurgitation. Mitral inflow indicate normal left ventricular diastolic function. Trace tricuspid regurgitation. Tricuspid systolic velocities suggests peak right ventricular systolic pressure of 22 mmHg. Pulmonic regurgitation present.
[2016-03-13] MEDS: Aspirin EC 81mg tab ORAL SCH (10:42)
[2016-03-13] MEDS: Heparin 5000 units/ml inj SUBQ SCH (10:44)
[2016-03-13] MEDS: DuoNeb 0.5-3(2.5)mg/3ml neb HHN PRN (11:33)
--- NOTE | 2016-03-13 11:37 | Diagnostic Imaging Report ---
Indications: Diplopia Technique: Sagittal and axial T1 weighted fast spin-echo, axial T2-weighted fat saturated fast spin echo, T2-weighted FLAIR, T2*-weighted gradient echo, and diffusion sequences of the brain were performed prior to IV gadolinium administration. Axial and coronal T1 weighted fast spin-echo was performed following IV gadolinium administration. Findings: Comparison: Noncontrast CT head 03/10/16 Extensive, partially confluent T2 signal hyperintensity is present around the bilateral cerebral periventricular, deep, and subcortical white matter. Multiple small circumscribed foci of signal change/parenchymal loss are superimposed within the bilateral thalami, basal ganglia, bruno are, centrum semiovale. Ventricles, cisterns, sulci are diffusely prominent. No evidence of mass or hemorrhage, other signal abnormality, mass effect, midline shift, hydrocephalus, or increased intracranial pressure. No restricted diffusion. No abnormal enhancement. Central vascular flow voids preserved. IMPRESSION: No evidence of acute intracranial pathology, unchanged Bilateral cerebral periventricular , deep, and subcorticalwhite matter signal hyperintensity, nonspecific, likely chronic microvascular ischemic in nature Multiple bilateral cerebral lacunar infarcts Atrophy
--- NOTE | 2016-03-13 11:49 | Diagnostic Imaging Report ---
Indications: Diplopia Technique: Axial T1-weighted fast spin-echo and T1-weighted fat-saturated fast spin-echo, coronal and axial T2-weighted fat-saturated fast spin-echo sequences of the orbits performed prior to IV gadolinium administration. Coronal and axial T1-weighted fat-saturated fast spin-echo sequences performed following IV gadolinium administration. Findings: Comparison: None Bilateral globes, periorbital preseptal soft tissues, retrobulbar or intraconal and extraconal soft tissues, extraocular muscles, lacrimal glands, optic nerves and sheaths, optic chiasm, suprasellar cistern, and post chiasmal optic radiations are unremarkable in appearance. No mass, fluid collection, other signal change or abnormal enhancement demonstrated. Mild mucoperiosteal thickening is present in the visualized portions of bilateral ethmoid sinuses. Impression: Negative MRI of the orbits
[2016-03-13] MEDS: D5 1/2NS 1,000 ML IV SCH (12:15)
[2016-03-13 12:35] VITALS: BP 161/98
--- NOTE | 2016-03-13 15:04 | Pulmonology Progress Note ---
Assessment/Plan Problems: (1) Diplopia (2) Cerebrovascular accident (CVA) (3) Hypertension (4) Sleep apnea (5) COPD exacerbation Assessment/Plan awaiting MRI brain neuro input appreciated swallow study noted med/surg dc home if ok with Neuro Subjective ROS Limited/Unobtainable: Yes Neurologic: Reports: confusion, numbness, weakness Allergies: Coded Allergies: HINA INHIBITORS (Verified Allergy, Severe, 04/03/15) TIMOLOL (Unverified Allergy, Unknown, 06/01/15) Objective Last 24 Hour Vital Signs Date Time Temp Pulse Resp B/P Pulse Ox O2 Delivery O2 Flow Rate FiO2 03/13/16 12:35 97.3 67 20 161/98 100 Room Air 03/13/16 10:43 156/101 03/13/16 08:51 97.5 70 20 166/106 98 Room Air 03/13/16 04:00 97.0 72 22 145/85 99 Room Air 03/13/16 00:00 97.7 74 22 140/97 100 Room Air 03/12/16 20:00 97.7 68 20 149/88 99 Room Air 03/12/16 19:30 84 16 Room Air 21 03/12/16 19:03 148/88 03/12/16 16:00 97.9 67 18 148/88 97 Room Air Intake and Output 03/12/16 03/13/16 19:00 07:00 Intake Total 500 ml 860 ml Output Total 1000 ml 950 ml Balance -500 ml -90 ml Intake Oral 250 ml 260 ml IV Total 250 ml 600 ml Output Urine Total 1000 ml 950 ml General Appearance: no acute distress HEENT: normocephalic, atraumatic, PERRL Respiratory/Chest: chest wall non-tender, normal breath sounds, no respiratory distress, no accessory muscle use, decreased breath sounds Cardiovascular: normal peripheral pulses, normal rate, regular rhythm, no JVD Abdomen: normal bowel sounds, soft, non tender, no organomegaly Extremities: no cyanosis Skin: no rash, no lesions Neurologic/Psychiatric: abnormal CN, motor weakness, sensory deficit, disoriented, depressed affect Current Medications Medications (Trade) Dose Ordered Sig/Red Route PRN Reason Start Time Stop Time Status Last Admin Dose Admin Acetaminophen (Tylenol) 650 mg Q4H PRN ORAL fever 03/11/16 21:15 04/10/16 21:14 Acetaminophen/ Hydrocodone Bitart ([place] 5/325) 1 tab Q12HR PRN ORAL Moderate Pain (Pain Scale 4-6) 03/11/16 21:00 03/18/16 20:59 03/12/16 21:30 Al Hydroxide/Mg Hydroxide (Mylanta II) 30 ml Q6H PRN ORAL dyspepsia 03/11/16 19:15 04/10/16 19:14 Albuterol/ Ipratropium (DuoNeb 0.5-3(2.5)mg/3ml) 3 ml Q4H PRN HHN Shortness of Breath 03/11/16 21:15 03/16/16 21:14 03/13/16 11:33 Aspirin (Ecotrin) 81 mg DAILY ORAL 03/12/16 09:00 04/11/16 08:59 03/13/16 10:42 Clonidine HCl (Catapres) 0.1 mg Q4H PRN ORAL For High Blood Pressure 03/11/16 21:15 04/10/16 21:14 Clonidine HCl (Catapres) 0.3 mg BID GT 03/12/16 09:00 04/11/16 08:59 03/13/16 10:43 Dextrose (Dextrose 50%) STAT PRN IV Hypoglycemia 03/12/16 13:15 04/11/16 13:14 Dextrose/Sodium Chloride (D5 0.45% NS) 1,000 ml @ 50 mls/hr Q20H IV 03/11/16 19:30 04/10/16 19:29 03/13/16 12:15 Furosemide (Lasix) 20 mg DAILY ORAL 03/12/16 09:00 04/11/16 08:59 03/13/16 10:42 Heparin Sodium (Porcine) (Heparin 5000 units/ml) 5,000 units EVERY 12 HOURS SUBQ 03/11/16 21:00 04/10/16 20:59 03/13/16 10:44 Lorazepam (Ativan 2mg/ml 1ml) 0.5 mg Q4H PRN IV For Anxiety 03/11/16 21:15 03/18/16 21:14 Morphine Sulfate (Morphine Sulfate) 1 mg Q4H PRN IVP For Pain 7-10 03/11/16 21:15 03/18/16 21:14 Nitroglycerin (Ntg) 0.4 mg Q5M X 3 DOSES PRN SL Prn Chest Pain 03/11/16 18:45 04/10/16 18:44 Ondansetron HCl (Zofran) 4 mg Q6H PRN IVP Nausea & Vomiting 03/11/16 19:15 04/10/16 19:14 Polyethylene Glycol (Miralax) 17 gm HSPRN PRN ORAL Constipation 03/12/16 13:15 04/11/16 13:14 Promethazine HCl/ Codeine (Phenergan with Codeine) 5 ml Q4H PRN ORAL For Cough 03/11/16 21:15 04/10/16 21:14 03/12/16 21:28 Temazepam (Restoril) 15 mg HSPRN PRN ORAL Insomnia 03/12/16 13:15 03/19/16 13:14 03/13/16 00:25 FELIBERTO BARBER Mar 13, 2016 15:04
[2016-03-13] MEDS ORDERED: D5 1/2NS 1000ml IV ONE ×2 (16:29)
--- NOTE | 2016-03-14 12:25 | Discharge Summary ---
Discharge Summary Hospital Course Date of Admission Mar 10, 2016 at 09:25 Date of Discharge Mar 13, 2016 at 16:30 Admitting Diagnosis SYNCOPE,DIPLOPIA HPI Milagro Kern is a 60 year old male who was admitted on Mar 10, 2016 at 09:25 for Syncope,Diplopia Hospital Course dc summary dictated #[id number] Discharge Medications Continued Medications: Acetaminophen With Codeine (T#3) (Tylenol #3 Tab*) 1 Each Tablet 1 TAB ORAL Q8H PRN for For Pain, #20 TAB Albuterol Sulfate (Ventolin Hfa) 18 Gm Hfa.aer.ad 2 PUFFS INH EVERY 6 HOURS, #18 GM 0 Refills Atorvastatin Calcium* (Atorvastatin Calcium*) 20 Mg Tablet Unknown Dose ORAL BEDTIME, TAB Beclomethasone Dipropionate (Qvar) 7.3 Gm Aer.w.adap 7.3 GM IH Furosemide* (Lasix*) 20 Mg Tablet 20 MG ORAL DAILY, #10 TAB Hydralazine Hcl (Hydralazine Hcl) 20 Mg/1 Ml Vial 100 MG IJ TID, VIAL Hydrocodone Bit/Acetaminophen 5-325* ([place] 5-325*) 1 Each Tablet 1 TAB ORAL Q12HR PRN for For Pain, #10 TAB Ibuprofen* (Motrin*) 600 Mg Tablet 600 MG ORAL THREE TIMES A DAY, #20 TAB Labetalol Hcl* (Labetalol Hcl*) 5 Mg/1 Ml Vial 300 MG IV BID, VIAL Prednisone* (Prednisone*) 20 Mg Tablet 40 MG ORAL DAILY, #10 TAB Discharge Condition Upon Discharge: improving Discharge Disposition Patient was discharged to home Discharge Diagnoses: Discharge Instructions Discharge Instructions Special Instructions I have been assigned to complete a D/C Summary on this account. I was not involved in the patient management Beverly Terrazas NP ([place]) Mar 14, 2016 12:25
--- NOTE | 2016-03-15 04:58 | Discharge Summary 2 SIG ---
DATE OF ADMISSION: 03/10/2016 DATE OF DISCHARGE: 03/13/2016 REASON FOR HOSPITALIZATION: A 60-year-old male presented with several different complaints. Initially, he complained of syncopal episode after coughing and sneezing. He also reported new onset of diplopia in the right eye. He denied headache. No neck pain. No change in vision. No chest pain. Admitted to intermittent shortness of breath. History of obstructive sleep apnea. No focal weakness. History of diabetes and hypertension. In the emergency room, lab work essentially was negative. A CT of the head was negative for any acute intracranial pathology. The patient was admitted to telemetry for further management. ADMITTING DIAGNOSES: 1. Syncope. 2. Diplopia. 3. History of cerebrovascular accident. 4. Hypertension. 5. Chronic obstructive pulmonary disease. 6. Nicotine dependency. 7. Obstructive sleep apnea. HOSPITAL COURSE: The patient admitted to a telemetry. Neurology and cardiac consult were requested. EKG revealed normal sinus rhythm. No ectopy. No PVC. No ST changes. Troponin negative. Front Loader Residential Driver seen and evaluated the patient. Blood pressure was managed with the current regimen of hydralazine and labetalol. Neurologist gave recommendation to keep systolic blood pressure above 110 and below 160, operations manager concurred with this recommendation. No evidence of ischemia and no evidence of arrhythmia on EKG or telemetry. An echocardiogram was done and revealed preserved ejection fraction of 55%, right ventricular systolic pressure of 22, and mild LVH. Neurologist seen and evaluated the patient and concluded that the patient has acute onset of right third nerve palsy, he recommended to rule out third nerve polyneuropathy, rule out lacunar stroke as well as rule out extensive ischemic cerebrovascular disease. He recommended to hydrate the patient, start aspirin, MRI of the brain, and MRI of the orbits as well as the carotid duplex. He also recommended to avoid opiates and arrange for Ophthalmology consult. Subsequently, the patient undergone carotid duplex which was essentially negative. MRI of the brain revealed no acute intracranial pathology, but was consistent with chronic extensive microvascular ischemic changes and multiple bilateral cerebellar lacunar infarcts. MRI of the orbit, face, and neck was negative. The patient was working with physical and occupational therapy. Pain management and bowel regimen were provided. Supplemental oxygen and pulmonary toilet provided as needed. Antitussive provided as needed. No evidence of COPD exacerbation. The patient started on nicotine patch. Counseled on smoking cessation. The patient was recommended to have sleep study as an outpatient. DVT prophylaxis provided. Patient was stable fro discharge, FINAL DIAGNOSES: 1. Syncope, likely secondary to dehydration. 2. 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 3. History of multiple lacunar cerebrovascular accident with extensive cerebrovascular disease. . 4. Abnormal ataxic gait secondary to multiple lacunar cerebrovascular accidents. 5. Hypertension. 6. Morbid obesity. 7. Chronic obstructive pulmonary disease. 8. Active smoker, nicotine dependency. 9. Obstructive sleep apnea. DISCHARGE MEDICATIONS: See medication reconciliation list. DISCHARGE INSTRUCTIONS: The patient to follow up with the primary medical doctor. Janice Reynolds M.D. I have been assigned to dictate discharge summary on this account and I was not involved in the patient's management. Beverly CamarenaHudson River State HospitalBeni NRangelPRangel DR: DONAL JOB#: [id number] CC: [id number]
--- NOTE | 2016-03-18 17:20 | Diagnostic Imaging Report ---
APPROVED REPORT CPT Code: 04626 Vascular Symptoms Syncope arteries. The Doppler spectral flow analysis indicates the degree of stenosis is minimal in the common, internal and external carotid arteries. VERTEBRAL - The vertebral arteries are patent, without evidence of stenosis or steal.
--- NOTE | 2016-03-18 17:20 | Diagnostic Imaging Report ---
APPROVED REPORT CPT Code: 97952 Present Symptoms Lower Extremity Pain: Bilateral Shortness of breath BILATERAL: Imaging reveals a patent deep venous system bilaterally. There is no evidence of thrombus within the femoral, popliteal or tibial segments. The greater saphenous veins are also within normal limits. Doppler indicates normal spontaneous flow within these segments.
== END 2016-03-13 16:30 | disposition home or self-care (01) | DRG 422 ==
LOC: EDBD 08:14 → EMR 08:45 → 2E 09:25 → EDBEDREQ 09:38 → 4E 03-11 14:51
DX: E86.0 Dehydration (principal); H49.01 Third [oculomotor] nerve palsy, right eye; I10 Essential (primary) hypertension; E66.01 Morbid (severe) obesity due to excess calories; J44.1 Chronic obstructive pulmonary disease with (acute) exacerbation; D64.9 Anemia, unspecified; E78.5 Hyperlipidemia, unspecified; E11.9 Type 2 diabetes mellitus without complications; H53.2 Diplopia; Z60.2 Problems related to living alone; F17.210 Nicotine dependence, cigarettes, uncomplicated; G47.33 Obstructive sleep apnea (adult) (pediatric); I69.393 Ataxia following cerebral infarction; Z68.37 Body mass index [BMI] 37.0-37.9, adult
CPT/HCPCS: 36415; 70450; 70543; 70553; 71010; 80053; 80061; 82550; 82553; 82962; 83880; 84238; 84443; 84484; 85025; 85610; 85730; 86039; 93005; 93306; 93880; 93970; 94640; 94664; A9585; J7620